=== PATIENT | female | born 1975 | race Two or more races ===

== ENCOUNTER 2025-01-26 15:37 | Emergency (ER) | payer MEDICAID, SELFPAY ==
[2025-01-26 15:38] VITALS: BMI 40.8
[2025-01-26 16:10] VITALS: BP 158/102; PULSE 111; RESP 20; TEMP 37.1; O2SAT 97
--- NOTE | 2025-01-26 16:10 | XR_ITS ---
Examination: CT lumbar spine, without contrast. 2-D sagittal reconstructions. 2-D coronal reconstructions. 3-D reconstructions. Date and time of exam:January 26, 2025, 1816 hours INDICATIONS: Onset lower back pain beginning 2 days ago CTDI: vol (mGy):40.9 DLP: (mGycm):1304. Technique: Multiple 1.25 mm axial sections of the lumbar spine without intravenous contrast. have been obtained. 2-D sagittal and coronal reconstructions have been obtained. 3-D reconstructions have been obtained. Low dose protocols were performed. One or more of the following dose reduction techniques were used; automated exposure control, adjustment of the mA and/or KV according to patient size, use of iterative reconstruction technique. Findings: Transitional L5 vertebral body. No lumbar fracture No spondylolisthesis Lumbar pedicles, laminae, transverse and posterior spinous processes are intact L5-S1 no disc protrusion L4-L5 3 mm central lumbar disc bulge extending to the right foraminal region with mild right L4 ganglionic impression L3-L4 no disc protrusion L2-L3 no disc protrusion L1-L2 no disc protrusion IMPRESSION: No lumbar fracture L4-L5 3 mm and the lumbar disc bulge contiguous with the bilateral L5 nerve roots, extending to the right intervertebral foramen producing mild right L4 ganglionic compression
--- NOTE | 2025-01-26 16:11 | PD.EDRME ---
Rapid Medical Screening Exam RME Arrival date/time: 01/26/25 15:37 49-year-old female presents to the emergency room today for complaints of lower back pain Chief Complaint: Back Pain/Injury
[2025-01-26] MEDS: KETOROLAC INJ 30 MG/ML VIAL IM (16:40)
[2025-01-26] MEDS: DIAZEPAM 5 MG TABLET 10 MG PO (16:40)
[2025-01-26 17:10] LABS: Collection Type, Urine Clean Catch; RBC,Urine 0 /hpf (0-3); Squamous Epithelial Cell,Urine 0 /hpf (0-5); WBC,Urine 0 /hpf (0-5)
[2025-01-26 17:31] LABS: Basophils # (Auto) 0.0 Thou/mm3 (0.0-0.2); Basophils % (Auto) 0 % (0-2.5); Eosinophils # (Auto) 0.1 Thou/mm3 (0.0-0.5); Eosinophils % (Auto) 1 % (0-10); Hematocrit 43.6 % (36.0-46.0); Hemoglobin 14.9 g/dL (12.0-16.0); Immature Granulocytes Auto 0.03 Thou/mm3 (0.00-0.00); Lymphocytes # (Auto) 2.2 Thou/mm3 (1.0-4.8); Lymphocytes % (Auto) 27 % (10-50); Mean Corpuscular HGB Conc 34.2 g/dl (31.0-37.0); Mean Corpuscular Hemoglobin 30.2 pg (25.0-35.0); Mean Corpuscular Volume 88 fL (80-100); Monocytes # (Auto) 0.8 Thou/mm3 (0.0-0.8); Monocytes % (Auto) 10 % (0-12); Neutrophils # (Auto) 5.1 Thou/mm3 (1.8-7.7); Neutrophils % (Auto) 61 % (37-80); Nucleated Red Blood Cell # 0.00 Thou/mm3 (0.00-0.00); Nucleated Red Blood Cell % 0 /100 WBC (0); Platelet Count 207 Thou/mm3 (140-440); RDW Standard Deviation 38.2 fL (36.4-46.3); Red Blood Count 4.94 Miln/mm3 (4.00-5.20); White Blood Count 8.3 Thou/mm3 (3.6-11.0)
[2025-01-26 17:47] LABS: HCG Qualitative,Urine Negative
[2025-01-26 17:50] LABS: Bilirubin,Urine Negative (Negative); Blood,Urine Negative (Negative); Clarity,Urine Clear (Clear/Hazy); Color,Urine Yellow (Lt Yel-Yel); Culture Indicated,Urine Not Indicated; Glucose, Urine Negative (Negative); Ketones,Urine Negative (Negative); Leukocyte Esterase,Urine Negative (Negative); Nitrite,Urine Negative (Negative); PH,Urine 6.5 (5.0-7.0); Protein,Urine Negative (Neg - Trace); Specific Gravity,Urine 1.022 (1.001-1.035); Urobilinogen,Urine Negative mg/dL (0.0-1.0)
[2025-01-26 17:54] LABS: Alanine Aminotransferase 40 U/L (10-49); Albumin, Serum 4.4 gm/dL (3.5-5.0); Albumin/Globulin Ratio 1.6 (1.2-2.2); Alkaline Phosphatase 129 U/L (46-116); Anion Gap 10 (7-16); Aspartate Amino Transferase 36 U/L (0-34); BUN/Creatinine Ratio 17 Ratio (12-20); Bilirubin,Total 0.4 mg/dL (0.3-1.2); Blood Urea Nitrogen 12 mg/dL (9-23); Calcium 9.8 mg/dL (8.3-10.6); Calcium (Corrected) 9.8 mg/dL (8.5-10.1); Carbon Dioxide 26.6 mMol/L (20.0-31.0); Chloride 106 mMol/L (98-107); Creatinine (Component) 0.7 mg/dL (0.6-1.3); Estimated Creatinine Clearance 104.2 mL/min (>60); Globulin 2.8 gm/dL (2.3-3.5); Glucose 114 mg/dL (74-106); Lipase 33 U/L (12-53); Osmolality,Calculated 285 (275-295); Potassium 3.8 mMol/L (3.4-5.1); Sodium 143 mMol/L (136-145); Total Protein 7.2 gm/dL (5.7-8.2); eGFR > 60 See Note
--- NOTE | 2025-01-26 20:19 | PD.EDBACK ---
ED Back Injury Pain RME/HPI General Chief Complaint: Back Pain/Injury Stated Complaint: LOWER BACK PAIN Time Seen by Provider: 01/26/25 18:07 Arrival date/time: 01/26/25 15:37 RME / HPI RME / HPI Narrative: 01/26/25 15:37 49-year-old female presents to the emergency room today for complaints of lower back pain See [facility] for Dr. Topete's HPI Documentation. Related Data Previous Rx's ?Medication ?Instructions ?Recorded Hydrocodone/Acetaminophen * (NORCO 1 tab PO Q4H PRN PAIN #10 tabs 06/23/16 5/325 *) acetaminophen 300 mg-codeine 30 mg 2 tab PO Q8H PRN pain #20 tabs 01/26/25 tablet cyclobenzaprine 10 mg tablet 10 mg PO Q8H PRN muscle spasm #30 01/26/25 tabs ibuprofen 800 mg tablet 800 mg PO Q8H PRN pain #30 tabs 01/26/25 lidocaine 5 % topical patch 2 patch topical QDAY PRN pain #30 01/26/25 (Lidoderm) ea Allergies Allergy/AdvReac Type Severity Reaction Status Date / Time No Known Allergies Allergy Verified 01/26/25 15:42 Review of Systems Review of Systems Systems Reviewed: All systems reviewed, normal except as documented Past Medical History Social History SMOKING STATUS: Never smoker ED Exam Narrative Physical exam: See [facility] for Dr. Topete's Physical Exam Documentation. Course Quality Measures none Orders Category Date Time Status CT lumbar spine wo con Stat Exams 01/26/25 16:10 Completed CBC Stat Lab 01/26/25 17:04 Completed Comprehensive Metabolic Panel Stat Lab 01/26/25 17:04 Completed HCG Qualitative,Urine Stat Lab 01/26/25 16:36 Completed Lipase Stat Lab 01/26/25 17:04 Completed UA, C/S IF [Urinalysis, C/S if Indicated] Stat Lab 01/26/25 16:36 Completed Diazepam [Valium] Med 01/26/25 16:10 Discontinued 10 mg PO X1 ONE Ketorolac Inj [Toradol Inj] Med 01/26/25 16:10 Discontinued 30 mg IM X1 ONE Morphine Inj Med 01/26/25 20:19 Discontinued 10 mg IM X1 ONE Vital Signs Vital signs: Vital Signs Temperature 98.8 F 01/26/25 16:10 Pulse Rate 111 H 01/26/25 16:10 Respiratory Rate 20 01/26/25 16:10 Blood Pressure 158/102 H 01/26/25 16:10 Pulse Oximetry (%) 97 01/26/25 16:10 Oxygen Delivery Method Room Air 01/26/25 16:10 Back Pain / Injury MDM Narrative MDM Narrative:: Scribe Attestation: I, Di Hinson, am scribing for and in the presence of Dr. Topete. This section includes all my notes and documentations, including HPI, PE, and ED course. Lazaro Topete MD HPI: 49 y/o female presents with lower back pain x 2 days. No other complaints. ROS: All negative except as documented in HPI. Physical Exam: General: Alert and oriented. In obvious pain. Eyes: Conjunctivae and lids clear. ENT: No nasal congestion. Neck: Supple. Heart: RRR. Lungs: No respiratory distress. Good air movement. No rhonchi, wheezing, rales. Abdomen: Soft and nontender. Normal bowel sounds. No distension. No rebound or guarding. Back: Equivocal lumbar spinal tenderness. Legs: No clubbing, cyanosis, edema. Skin: Warm and dry. Neuro: Alert and oriented X 3. No peripheral motor deficits. I reviewed all diagnostic test results: My review of the Lumbar Spine CT report is lumbar spinal stenosis. Blood tests and urine tests unremarkable. At this point, diagnoses include: Lumbar spinal stenosis Treatment here included: Oral Valium 10 mg and Toradol 30 mg IM by BOONE. No significant improvement noted. With Morphine 10 mg IM, she felt much better. Recommended outpatient care. Based on my best medical judgment, made decision no further evaluation or treatment indicated at this time. Patient understands and agrees to the discharge instructions customized and printed, see below. Discharge Instructions from Dr. Topete: --After evaluation, we are dealing with Sciatica (same as Lumbar Radiculopathy or Spinal Stenosis) where pinched nerve is causing your symptoms.? --This condition is difficult because normal pain medications don?t work very well on nerve pain. --Despite the pain, try to resume your normal chores and activities.? Because inactivity is terrible for this condition.? And activity won?t make your condition worse.? Use a cane of stick to help stand and walk.? --Use Ibuprofen and Cyclobenzaprine and Tylenol with codeine and lidocaine patches as needed.? Don't expect the pain to go away completely, hoping to take the edge off.?? --When resting and sleeping, try right sided or left sided position (with your knees to your chest and bending forward).? This can take some pressure off the nerve and help your pain. --Apply ice or heat if helpful. --See a private doctor (outside the ER) on 01/27/2025 for further care. Ask to help you get more care not available here in the ER.? Such as MRI imaging, physical therapy, and referrals to see specialists.? Some choose to have surgery for this condition. But you need to have MRI imaging to confirm the diagnosis and assess the severity to get the best treatments. Ask to review all test results and official radiology reports, to make sure you receive all necessary follow-ups and monitoring. --Seek immediate medical care with paralysis in your foot, losing control of your bladder or bowels, saddle numbness (anal numbness), or with any concerns.?? Lazaro Topete MD Patient data External records reviewed:: [facility] previous records (No prior ED records available for review.) Clinical information provided by:: patient Social determinants that could affect healthcare access:: none Patient has the following chronic illnesses:: None reported. How is presenting disease/condition affected by chronic disease/condition?: no chronic disease Evaluation data The following diagnostics were reviewed and interpreted by me:: lab results and radiology exam(s) Lab and/or radiology exams considered but not ordered:: None Interpretation Summary: I reviewed all diagnostic test results: My review of the Lumbar Spine CT report is lumbar spinal stenosis. Blood tests and urine tests unremarkable. Medications / Prescriptions Medications or Prescriptions considered but not ordered:: None Medication administrations:: Medication Administration History Discontinued Medications Diazepam (Diazepam 5 Mg Tablet) 10 mg PO X1 ONE Stop: 01/26/25 16:11 Last Admin: 01/26/25 16:40 Dose: 10 mg Documented By: EDUIN Ketorolac Tromethamine (Ketorolac Inj 30 Mg/Ml Vial) 30 mg IM X1 ONE Stop: 01/26/25 16:11 Last Admin: 01/26/25 16:40 Dose: 30 mg Documented By: EDUIN Morphine Sulfate (Morphine Sulf Inj 10 Mg/Ml Vial) 10 mg IM X1 ONE Stop: 01/26/25 20:20 Last Admin: 01/26/25 20:23 Dose: 10 mg Documented By: ROBERTO Treatment here included: Oral Valium 10 mg and Toradol 30 mg IM by BOONE. No significant improvement noted. With Morphine 10 mg IM, she felt much better. Consultations Consultation(s) initiated? (list below): No Diagnosis Differential diagnosis back pain/injury: lumbar radiculopathy, sciatica, strain of lumbar region, renal colic, pyelonephritis, AAA and discitis Most likely diagnosis given after review of the tests above:: Lumbar spinal stenosis Admission Indicated Admission indicated?: not indicated Explain why admission is indicated or not indicated:: With significant improvement and no condition needing emergent intervention, there was no indication for admission. Admission Request Was there a request for admission?: No Disposition Plan Disposition Plan: Discharge Discharge Attestation Discharge Attestation: The patient and all family members were given an opportunity to ask questions and understood the discharge instructions. Discharge instructions specifically effects, indications for sooner follow up or return to the emergency department, and the expected course of current diagnosis. Patient condition: Stable Discharge Plan Plan Patient Disposition: HOME (Self Care) Prescriptions/Referrals Prescriptions/Med Rec: New cyclobenzaprine 10 mg tablet 10 mg PO Q8H PRN (Reason: muscle spasm) Qty: 30 0RF ibuprofen 800 mg tablet 800 mg PO Q8H PRN (Reason: pain) Qty: 30 0RF acetaminophen-codeine 300-30 mg tablet 2 tab PO Q8H MDD 6 PRN (Reason: pain) Qty: 20 0RF lidocaine [Lidoderm] 5 % adhesive patch,medicated 2 patch topical QDAY PRN (Reason: pain) Qty: 30 0RF Rx Instructions: leave on most painful area for up to 12 hrs No Action Hydrocodone/Acetaminophen * (NORCO 5/325 *) 1 TAB tablet 1 tab PO Q4H PRN (Reason: PAIN) Qty: 10 0RF Referrals: No Primary/Family,Physician [Primary Care Provider] - In 1 week Problem List Clinical Impression: Pinched nerve in neck Patient/Caregiver Discharge Instructions Discharge Activity: activity as tolerated Education Materials: ED Sciatica Additional Instructions: Discharge Instructions from Dr. Topete: --After evaluation, we are dealing with Sciatica (same as Lumbar Radiculopathy or Spinal Stenosis) where pinched nerve is causing your symptoms.? --This condition is difficult because normal pain medications don?t work very well on nerve pain. --Despite the pain, try to resume your normal chores and activities.? Because inactivity is terrible for this condition.? And activity won?t make your condition worse.? Use a cane of stick to help stand and walk.? --Use Ibuprofen and Cyclobenzaprine and Tylenol with codeine and lidocaine patches as needed.? Don't expect the pain to go away completely, hoping to take the edge off.?? --When resting and sleeping, try right sided or left sided position (with your knees to your chest and bending forward).? This can take some pressure off the nerve and help your pain. --Apply ice or heat if helpful. --See a private doctor (outside the ER) on 01/27/2025 for further care. Ask to help you get more care not available here in the ER.? Such as MRI imaging, physical therapy, and referrals to see specialists.? Some choose to have surgery for this condition. But you need to have MRI imaging to confirm the diagnosis and assess the severity to get the best treatments. Ask to review all test results and official radiology reports, to make sure you receive all necessary follow-ups and monitoring. --Seek immediate medical care with paralysis in your foot, losing control of your bladder or bowels, saddle numbness (anal numbness), or with any concerns.?? Print Language: Mongolian Stand Alone Forms: [facility] Award Info., Patient Portal Info Letter
[2025-01-26] MEDS: MORPHINE SULF INJ 10 MG/ML VIAL IM (20:23)
[2025-01-26 20:27] VITALS: BP 135/76; PULSE 95; RESP 18; TEMP 36.8; O2SAT 95
== END 2025-01-26 20:28 | disposition home or self-care (01) ==
PROVIDERS: Nurse Practitioner Primary Care; Emergency Provider Emergency Medicine
DX: G58.9 Mononeuropathy, unspecified (principal); M48.061 Spinal stenosis, lumbar region without neurogenic claudication
CPT/HCPCS: 36415; 72131; 80053; 81001; 81025; 83690; 85025; 99283; J1885; J2270; A9270